=== PATIENT | female | born 1985 | race Caucasian/White ===

== ENCOUNTER 2021-04-27 16:16 | Emergency (ER) | payer OTHER ==
[~2021-04-27] VITALS: Ht 172.7 cm; Wt 119.3 kg
[~2021-04-27 16:16] MED LIST: DICY10CA59 PO
--- NOTE | 2021-04-27 16:35 | NUR ---
Patient to ER bed 7 to gown for evaluation. Side rails up.
[2021-04-27 16:36] VITALS: BP_SYST 139
--- NOTE | 2021-04-27 16:40 | NUR ---
pt arrives from home w/ c/o a possible bug bite the right LE. Pt has redness/swelling to the are. Pt was seen at an UC yesterday and was given a PO and IM antibiotic. Pt returned to that same UC today and was told to come to the ER
--- NOTE | 2021-04-27 17:25 | NUR ---
IVETTE Fernandes at bedside examining patient.
[2021-04-27] MEDS ORDERED: VANCOMYCIN HCL 1,000 MG in NS 250 ML IV ONE ×4 (17:30)
[2021-04-27] MEDS ORDERED: VANCOMYCIN HCL 1000 MG/VIAL IV ONE (17:32)
--- NOTE | 2021-04-27 18:00 | NUR ---
# 20 gauge angiocath placed to PABLO. Use of asceptic technique. Opsite placed over site. Blood return noted. Blood for lab drawn from site. Flushed with 10 cc of normal saline. No evidence of infiltration noted. Patient tolerated well.
--- NOTE | 2021-04-27 18:15 | NUR ---
Vanco currently infusing per MD order. Blood cx priorly drawn
--- NOTE | 2021-04-27 19:10 | NUR ---
Receieved endorsement from day shift, AAOX4, breathing spontaneously at room air, not in distress, with ongoing Vancomycin 1GM IVPB infusing at right arm g20 iv cannula noted. Vital signs stable
[2021-04-27] MEDS ORDERED: SULF1TAB48 PO ×2 (19:57→20:20)
--- NOTE | 2021-04-27 20:01 | NUR ---
Re-assesed by DR. De La Cruz, for discharge
[2021-04-27 20:45] VITALS: BP_SYST 128
--- NOTE | 2021-04-27 20:45 | NUR ---
Patient given written and verbal discharge instructions and verbalizes understanding. ER MD discussed with patient the results and treatment provided. Patient in stable condition. ID arm band removed. IV catheter removed intact and dressing applied, no active bleeding. Rx of Bactrim DS given. Patient educated on pain management and to follow up with PMD. Pain Scale 0/10. Opportunity for questions provided and answered. Medication side effect fact sheet provided.
== END 2021-04-27 20:45 | disposition home or self-care (01) ==
LOC: SED 16:16
DX: S90.561A Insect bite (nonvenomous), right ankle, initial encounter (principal); L03.115 Cellulitis of right lower limb; Z79.899 Other long term (current) drug therapy; W57.XXXA Bitten or stung by nonvenomous insect and other nonvenomous arthropods, initial encounter; Y93.89 Activity, other specified; Y92.89 Other specified places as the place of occurrence of the external cause; Y99.8 Other external cause status
CPT/HCPCS: 36415; 87040; 96365; 96366; 99284; J3370